=== PATIENT | female | born 1955 | race Caucasian/White ===

== ENCOUNTER 2018-12-09 15:43 | Inpatient (IN) | payer BC, MEDICAID ==
[~2018-12-09] VITALS: Ht 165.1 cm; Wt 93.9 kg
[2018-12-09] MEDS ORDERED: methylPREDNISolone SOD SUCC 125 MG/2 ML IVP ONE (16:00)
[2018-12-09] MEDS ORDERED: SODIUM CHLORIDE FLUSH 10ML SYR IVF ONE (16:00)
--- NOTE | 2018-12-09 16:00 | NUR ---
LATE ENTRY FOR 16:00. PT C/O SOB/DIFFICULTY BREATHING X A FEW DAYS WITH DIZZYNESS/COUGH AND CHEST PRESSURE. PT HAS HX OF ASTHMA AND PNA. PT STATES "INHALER/BREATHING TREATMENTS DID NOT WORK AT HOME." PT AOX4. RESPS EVEN AND UNLABORED. PT DOESN'T USE OXY AT HOME. ALL MONITORS IN PLACE. CALL LIGHT WITHIN REACH.
[2018-12-09] MEDS ORDERED: methylPREDNISolone SOD SUCC 125 MG/2 ML ONE (16:07)
[2018-12-09] MEDS ORDERED: ALBUTEROL SULFATE 2.5 MG/3 ML ONE (16:09)
--- NOTE | 2018-12-09 16:09 | NUR ---
verbal order received for breathing tx per RT. RT paged to see pt.
--- NOTE | 2018-12-09 16:14 | NUR ---
RT at bedside for tx.
[2018-12-09] MEDS ORDERED: ALBUTEROL 0.5%, 20ML ONE (16:19)
[2018-12-09] MEDS ORDERED: MAGNESIUM SULFATE 1 GM in SODIUM CHLORIDE 0.9% 50 ML IV ONE (16:30)
[2018-12-09] MEDS ORDERED: ALBUTEROL/IPRATROPIUM 2.5MG/0.5MG, 3 ML NPPB SCH (16:30)
[2018-12-09] MEDS ORDERED: ALBUTEROL 0.5%, 20ML NPPB SCH (16:30)
[2018-12-09] MEDS ORDERED: MAGNESIUM SULFATE 1 GM/2 ML IVPush ONE (16:30)
--- NOTE | 2018-12-09 16:30 | NUR ---
PT MEDICATED PER EMAR. PT TOLERATED WELL. PT AOX4. RESPS EVEN AND UNLABORED.
[2018-12-09 16:41] LABS: BASOPHILS # (AUTO) 0.08 x10^3/uL (0-0.1); BASOPHILS % (AUTO) 1 % (0-1); EOSINOPHILS # (AUTO) 1.31 x10^3/uL (0-0.4); EOSINOPHILS % (AUTO) 16 % (1-7); LYMPHOCYTES # (AUTO) 1.87 x10^3/uL (1-3.4); LYMPHOCYTES % (AUTO) 23 % (22-44); MD NO; MEAN CORPUSCULAR HEMOGLOBIN 30.4 pg (27.0-34.8); MEAN CORPUSCULAR VOLUME 89.5 fL (80-100); MEAN PLATELET VOLUME 8.8 fL (7.4-10.4); MONOCYTES # (AUTO) 0.61 x10^3/uL (0.2-0.8); MONOCYTES % (AUTO) 7 % (2-9); NEUTROPHILS # (AUTO) 4.47 x10^3/uL (1.8-6.8); NEUTROPHILS % (AUTO) 54 % (42-75); PLATELET COUNT 221 x10^3/uL (130-400); RED CELL DISTRIBUTION WIDTH 12.7 % (9.6-15.2)
[2018-12-09 16:51] LABS: ALANINE AMINOTRANSFERASE 38 U/L (12-78); ALBUMIN 3.8 g/dL (3.4-5.0); ANION GAP 8 mmol/L (5-15); CALCIUM 8.9 mg/dL (8.5-10.1); CHLORIDE 109 mmol/L (98-107); CREATININE 0.76 mg/dL (0.55-1.02)
[2018-12-09 16:55] LABS: ALKALINE PHOSPHATASE 93 U/L (45-117); BILIRUBIN,TOTAL 0.7 mg/dL (0.2-1.0); TOTAL PROTEIN 7.7 g/dL (6.4-8.2)
--- NOTE | 2018-12-09 17:16 | NUR ---
PT RESTING IN [facility]. PT STATES "I CAN BREATH EASILY THAN BEFORE." PT AOX4. RESPS EVEN AND UNLABORED. ALL MONITORS IN PLACE. CALL LIGHT WITHIN REACH.
--- NOTE | 2018-12-09 17:40 | NUR ---
report to break DELBERT Zamudio.
--- NOTE | 2018-12-09 17:41 | NUR ---
Teena CARDENAS, at bedside to evaluate pt for admission.
[2018-12-09] MEDS ORDERED: ONDANSETRON 2MG/ML, 2ML IVPush PRN (18:00)
[2018-12-09] MEDS ORDERED: ACETAMINOPHEN 325 MG TABLET PO PRN (18:00)
[2018-12-09] MEDS ORDERED: DOCUSATE 100 MG CAPSULE PO PRN (18:00)
[2018-12-09] MEDS ORDERED: POLYETHYLENE GLYCOL 17 GM PACKET PO PRN (18:00)
[2018-12-09] MEDS ORDERED: ENALAPRILAT 1.25 MG/ML, 2ML IVPush PRN (18:00)
[2018-12-09] MEDS ORDERED: BISACODYL 10 MG SUPP PR PRN (18:00)
[2018-12-09 19:31] VITALS: BP 127/84
[2018-12-09] MEDS: ALBUTEROL SULFATE 2.5 MG/3 ML NPPB SCH ×2 (21:25→23:00)
[2018-12-09] MEDS: GUAIFENESIN ER 600 MG TABLET PO SCH (23:29)
[2018-12-09] MEDS: methylPREDNISolone SOD SUCC 125 MG/2 ML IVPush SCH (23:29)
[2018-12-09] MEDS: ENOXAPARIN 40 MG/0.4 ML SQ SCH (23:30)
[2018-12-09] MEDS: SODIUM CHLORIDE FLUSH 10ML SYR IVF SCH (23:30)
[2018-12-10 01:37] VITALS: BP 118/80
[2018-12-10] MEDS ORDERED: MONT10TA9 PO (02:23)
[2018-12-10] MEDS: ALBUTEROL SULFATE 2.5 MG/3 ML NPPB SCH ×6 (03:40→22:08)
[2018-12-10] MEDS: methylPREDNISolone SOD SUCC 125 MG/2 ML IVPush SCH ×4 (05:35→23:51)
[2018-12-10 06:20] VITALS: BP 113/66
[2018-12-10 07:48] LABS: BASOPHILS # (AUTO) 0.01 x10^3/uL (0-0.1); BASOPHILS % (AUTO) 0 % (0-1); EOSINOPHILS % (AUTO) 0 % (1-7); LYMPHOCYTES # (AUTO) 0.82 x10^3/uL (1-3.4); LYMPHOCYTES % (AUTO) 10 % (22-44); MD NO; MEAN CORPUSCULAR HEMOGLOBIN 30.1 pg (27.0-34.8); MEAN CORPUSCULAR HGB CONC 33.4 g/dL (32.4-35.8); MEAN CORPUSCULAR VOLUME 90.1 fL (80-100); MEAN PLATELET VOLUME 8.7 fL (7.4-10.4); MONOCYTES # (AUTO) 0.15 x10^3/uL (0.2-0.8); MONOCYTES % (AUTO) 2 % (2-9); NEUTROPHILS # (AUTO) 7.32 x10^3/uL (1.8-6.8); NEUTROPHILS % (AUTO) 88 % (42-75); PLATELET COUNT 202 x10^3/uL (130-400); RED BLOOD COUNT 4.23 x10^6/uL (3.82-5.3); RED CELL DISTRIBUTION WIDTH 13.4 % (9.6-15.2)
[2018-12-10 07:59] LABS: ANION GAP 9 mmol/L (5-15); CALCIUM 8.9 mg/dL (8.5-10.1); CHLORIDE 109 mmol/L (98-107)
[2018-12-10 08:00] LABS: CREATININE 0.78 mg/dL (0.55-1.02)
[2018-12-10] MEDS: GUAIFENESIN ER 600 MG TABLET PO SCH ×2 (09:04→20:52)
[2018-12-10] MEDS: KETOROLAC 30 MG/1 ML IV PRN ×2 (09:04→17:07)
[2018-12-10] MEDS: SODIUM CHLORIDE FLUSH 10ML SYR IVF SCH ×2 (09:04→20:53)
[2018-12-10 12:55] VITALS: BP 128/80
[2018-12-10 19:33] VITALS: BP 122/69
[2018-12-10] MEDS: ENOXAPARIN 40 MG/0.4 ML SQ SCH (23:30)
[2018-12-11] MEDS: KETOROLAC 30 MG/1 ML IV PRN ×3 (02:13→20:56)
[2018-12-11] MEDS: ALBUTEROL SULFATE 2.5 MG/3 ML NPPB SCH ×5 (02:23→20:13)
[2018-12-11 02:58] VITALS: BP 116/72
[2018-12-11] MEDS: methylPREDNISolone SOD SUCC 125 MG/2 ML IVPush SCH ×3 (06:12→18:09)
[2018-12-11 07:13] VITALS: BP 120/73
[2018-12-11] MEDS: GUAIFENESIN ER 600 MG TABLET PO SCH ×2 (10:44→20:41)
[2018-12-11] MEDS: SODIUM CHLORIDE FLUSH 10ML SYR IVF SCH ×2 (10:44→20:41)
[2018-12-11 14:59] VITALS: BP 128/76
[2018-12-11] MEDS: AMPICILLIN/SULBACTAM 3 GM in SODIUM CHLORIDE 0.9% 100 ML IV SCH ×2 (14:59→20:41)
[2018-12-11 19:51] VITALS: BP 147/81
[2018-12-11] MEDS: ENOXAPARIN 40 MG/0.4 ML SQ SCH (23:30)
[2018-12-12] MEDS: methylPREDNISolone SOD SUCC 125 MG/2 ML IVPush SCH ×2 (00:09→06:27)
[2018-12-12 00:12] VITALS: BP 152/89
[2018-12-12] MEDS: ALBUTEROL SULFATE 2.5 MG/3 ML NPPB SCH ×3 (00:26→07:26)
[2018-12-12] MEDS: AMPICILLIN/SULBACTAM 3 GM in SODIUM CHLORIDE 0.9% 100 ML IV SCH ×2 (02:55→09:26)
[2018-12-12] MEDS ORDERED: MORPHINE SULFATE 4 MG/ML, 1ML ONE (05:14)
[2018-12-12] MEDS ORDERED: MORPHINE SULFATE 4 MG/ML, 1ML IVPush ONE (05:30)
[2018-12-12 05:41] LABS: BASOPHILS # (AUTO) 0.01 x10^3/uL (0-0.1); BASOPHILS % (AUTO) 0 % (0-1); EOSINOPHILS % (AUTO) 0 % (1-7); LYMPHOCYTES # (AUTO) 0.83 x10^3/uL (1-3.4); LYMPHOCYTES % (AUTO) 7 % (22-44); MD NO; MEAN CORPUSCULAR HEMOGLOBIN 30.6 pg (27.0-34.8); MEAN CORPUSCULAR HGB CONC 33.9 g/dL (32.4-35.8); MEAN CORPUSCULAR VOLUME 90.3 fL (80-100); MEAN PLATELET VOLUME 8.9 fL (7.4-10.4); MONOCYTES # (AUTO) 0.27 x10^3/uL (0.2-0.8); MONOCYTES % (AUTO) 2 % (2-9); NEUTROPHILS # (AUTO) 11.34 x10^3/uL (1.8-6.8); NEUTROPHILS % (AUTO) 91 % (42-75); PLATELET COUNT 198 x10^3/uL (130-400); RED BLOOD COUNT 3.88 x10^6/uL (3.82-5.3); RED CELL DISTRIBUTION WIDTH 13.3 % (9.6-15.2)
[2018-12-12 05:50] LABS: ANION GAP 7 mmol/L (5-15); CALCIUM 8.9 mg/dL (8.5-10.1); CHLORIDE 110 mmol/L (98-107); CREATININE 0.78 mg/dL (0.55-1.02)
[2018-12-12 06:18] LABS: TROPONIN I < 0.015 ng/mL (0.000-0.045)
[2018-12-12 07:45] VITALS: BP 139/71
[2018-12-12] MEDS ORDERED: GUAI600T31 PO (08:38)
[2018-12-12] MEDS ORDERED: AMOX1TAB12 PO (08:38)
[2018-12-12] MEDS ORDERED: PRED20TA PO (08:38)
[2018-12-12] MEDS ORDERED: ALBU18HF INH (08:38)
[2018-12-12] MEDS ORDERED: ALBU2.5V NPPB (08:38)
[2018-12-12 08:42] LABS: TROPONIN I < 0.015 ng/mL (0.000-0.045)
[2018-12-12] MEDS: KETOROLAC 30 MG/1 ML IV PRN (09:26)
[2018-12-12] MEDS: SODIUM CHLORIDE FLUSH 10ML SYR IVF SCH (09:26)
[2018-12-12] MEDS: GUAIFENESIN ER 600 MG TABLET PO SCH (09:26)
== END 2018-12-12 10:55 | disposition home or self-care (01) | DRG 189 ==
LOC: ED 16:43 → EDIP 17:43 → 3NE 18:27 → DCLOUNGE 12-12 10:43
PROVIDERS: ADMIT Hospitalist; ATTEND Hospitalist
DX: J96.21 Acute and chronic respiratory failure with hypoxia (principal); J45.901 Unspecified asthma with (acute) exacerbation; J98.11 Atelectasis; F12.90 Cannabis use, unspecified, uncomplicated; Z87.891 Personal history of nicotine dependence; R73.9 Hyperglycemia, unspecified
CPT/HCPCS: 36415; 99291; J7613; 71045; 80048; 80053; 83880; 84484; 85025; 87070; 87107; 87147; 87205; 93005; 94640; 94644; G0378; J0295; J1650; J1885; J3475; J2930